=== PATIENT | female | born 1985 | race Two or more races ===

== ENCOUNTER 2020-07-05 06:10 | Inpatient (IN) | payer BC ==
[~2020-07-05] VITALS: Ht 154.9 cm; Wt 106.6 kg
[2020-07-05 08:02] LABS: Urine Bacteria NONE SEEN /hpf (None Seen); Urine Blood 2+ /uL (Negative); Urine Mucus FEW (None Seen); Urine Specific Gravity 1.013 (1.001-1.035); Urine WBC 10 /hpf (0 - 5)
[2020-07-05] MEDS ORDERED: PROMETHAZINE HCL 25 MG/ML 1ML IM PRN (08:15)
[2020-07-05] MEDS ORDERED: WITCH HAZEL-GLYCERIN PAD TOP PRN (08:15)
[2020-07-05] MEDS ORDERED: DERMOPLAST 60ML BOTTLE TOP PRN (08:15)
[2020-07-05] MEDS ORDERED: PROMETHAZINE HCL 25 MG/ML 1ML IV PRN (08:15)
[2020-07-05] MEDS ORDERED: LACT. RINGERS/OXYTOCIN 20UNITS 1,000 ML IV ONE (08:15)
[2020-07-05] MEDS ORDERED: BUTORPHANOL TARTRATE 2 MG/1 ML VIAL IV PRN ×2 (08:15)
[2020-07-05] MEDS ORDERED: LACT. RINGERS/OXYTOCIN 20UNITS 1,000 ML IV SCH (08:15)
[2020-07-05] MEDS ORDERED: LIDOCAINE 2%HCL (LOCAL ANESTH.) INJ 20ML MDV IJ ONE (08:15)
[2020-07-05] MEDS ORDERED: PHISODERM TOP SOLN 240ML BTL TOP PRN (08:15)
[2020-07-05] MEDS: LACTATED RINGER'S 1,000 ML IV SCH ×2 (08:36→09:53)
[2020-07-05] MEDS ORDERED: fentaNYL 400mCg/200ml W ROPIVA 200 ML EPI SCH (09:00)
[2020-07-05] MEDS ORDERED: ePHEDrine SULFATE 50 MG/ML AMP IV ONE (09:00)
[2020-07-05] MEDS ORDERED: LIDOCAINE HCL 2 %PF INJ 10ML AMP IJ ONE (09:00)
[2020-07-05] MEDS ORDERED: LACTATED RINGER'S 500 ML IV ONE (09:00)
[2020-07-05 09:10] LABS: Basophils # (auto) 0 10 ^3/uL (0-0.2); Basophils % (auto) 0.2 % (0.0-2.0); Eosinophils # (auto) 0 10 ^3/uL (0-0.8); Eosinophils % (auto) 0.1 % (0.0-7.0); Hematocrit 37.3 % (36.0-46.0); Hemoglobin 12.4 g/dL (12.2-16.2); Lymphocytes # (auto) 1.2 10 ^3/uL (0.4-5.4); Mean Corpuscular Hemoglobin 29.1 pg (28.0-32.0); Mean Corpuscular Hgb Conc. 33.3 g/dL (32.0-36.0); Mean Corpuscular Volume 87.5 fL (80.0-100.0); Monocytes # (auto) 0.6 10 ^3/uL (0-1.3); Monocytes % (auto) 3.7 % (0.0-12.0); Neutrophils # (auto) 13.2 10 ^3/uL (1.6-8.6); Platelet Count (auto) 252 10^3/uL (140-450); Red Blood Cells 4.26 10^6/uL (4.0-5.20); Red Cell Distribution Width 14.3 % (11.8-14.3)
[2020-07-05 09:22] LABS: INR 0.95 (0.9-1.15); Partial Thromboplastin Time 29.7 sec (23.0-31.2)
[2020-07-05 09:24] LABS: Albumin 2.4 g/dL (3.4-5.0)
[2020-07-05 09:28] LABS: Bilirubin, Total 0.2 mg/dL (0.2-1.0); Total Protein 6.7 g/dL (6.4-8.2)
[2020-07-05 11:31] VITALS: BP 105/57
[2020-07-05] MEDS: IBUPROFEN 600 MG TAB PO PRN ×2 (11:47→17:23)
[2020-07-05] MEDS ORDERED: PREN-96 PO (13:37)
[2020-07-05] MEDS: ACETAMINOPHEN 325 MG TAB PO PRN ×2 (13:54→19:00)
[2020-07-05 15:03] VITALS: BP 125/73
[2020-07-05 19:00] VITALS: BP 119/73
[2020-07-05 22:50] VITALS: BP 125/76
[2020-07-06 02:30] VITALS: BP 122/67
[2020-07-06 07:00] VITALS: BP 121/79
[2020-07-06 07:15] LABS: RPR Non Reactive (Non Reactive)
[2020-07-06] MEDS: IBUPROFEN 600 MG TAB PO PRN (07:46)
[2020-07-06 10:38] VITALS: BP 125/67
== END 2020-07-06 12:05 | disposition home or self-care (01) | DRG 807 ==
LOC: LDRP 06:10 → OBSVTOIN 08:13 → LDRP 08:20
PROVIDERS: ADMIT Specialist; ATTEND Specialist
PROC: 10E0XZZ Delivery of Products of Conception, External Approach (ICD-10-PCS; principal; 2020-07-05)
DX: O80 Encounter for full-term uncomplicated delivery (principal); Z37.0 Single live birth; Z3A.40 40 weeks gestation of pregnancy; Z20.822 Contact with and (suspected) exposure to COVID-19
CPT/HCPCS: 36415; 59025; 59409; 80053; 81001; 81002; 85025; 85610; 85730; 86592; 86850; 86900; 86901; 87426; 96360; 96361; 96365; G0378; J2590